=== PATIENT | female | born 1960 | race Caucasian/White ===

== ENCOUNTER → 2023-08-03 10:59 | Outpatient (CLI) | payer BC, SELFPAY | PROVIDERS: Visit Provider Student in an Organized Health Care Education/Training Program | DX: R30.0 Dysuria (principal) | CPT/HCPCS: 87086 ==

== ENCOUNTER → 2023-08-15 09:26 | Outpatient (CLI) | payer BC, SELFPAY ==
--- NOTE | 2023-08-15 09:30 | DI.RAD.S_ITS ---
PROCEDURE: XR FINGER RT MIN 2V INDICATIONS: dislocated ring finger - bent PIP 90* on Sun TECHNIQUE: AP hand, 2 views of the 4th finger(s) acquired. COMPARISON: None. FINDINGS: Bones: No fractures or dislocations. No suspicious bony lesions. Soft tissues: No suspicious soft tissue calcifications. PIP soft tissue swelling. IMPRESSION: 4th finger PIP region soft tissue swelling with no associated bony avulsion noted. Dictated by: Scott Trevino M.D. on 08/15/2023 at 10:51 Approved by: Scott Trevino M.D. on 08/15/2023 at 10:52
== END ==
PROVIDERS: PCP Student in an Organized Health Care Education/Training Program; Referring Provider Physician Assistant; Visit Provider Physician Assistant
DX: S63.254A Unspecified dislocation of right ring finger, initial encounter (principal); X58.XXXA Exposure to other specified factors, initial encounter
CPT/HCPCS: 73140

== ENCOUNTER → 2024-02-15 11:40 | Outpatient (CLI) | payer BC, SELFPAY ==
--- NOTE | 2024-02-15 11:41 | DI.RAD.S_ITS ---
PROCEDURE: XR WRIST RT MIN 3V INDICATIONS: Dog bite on write forearm/wrist TECHNIQUE: 4 views of the wrist were acquired. COMPARISON: None. FINDINGS: Bones: No acute displaced fracture or dislocation. Soft tissues: No suspicious calcifications. IMPRESSION: No acute bony abnormality. If there is high concern for occult injury, consider repeat radiography or cross-sectional imaging. Dictated by: Suhas Pierce M.D. on 02/15/2024 at 15:25 Approved by: Suhas Pierce M.D. on 02/15/2024 at 15:25
--- NOTE | 2024-02-15 11:41 | DI.RAD.S_ITS ---
PROCEDURE: XR FOREARM RT 2V INDICATIONS: Dog bite on write forearm/wrist TECHNIQUE: 2 views of the forearm were acquired. COMPARISON: None. FINDINGS: Bones: No acute displaced fracture or dislocation. Possible small exostosis arising from the distal humerus partially seen. Soft tissues: No suspicious calcifications. IMPRESSION: No acute bony abnormality. If there is high concern for occult injury, consider repeat radiography or cross-sectional imaging. Dictated by: Suhas Pierce M.D. on 02/15/2024 at 15:26 Approved by: Suhas Pierce M.D. on 02/15/2024 at 15:26
== END ==
PROVIDERS: PCP Student in an Organized Health Care Education/Training Program; Referring Provider Family Medicine; Visit Provider Family Medicine
DX: S41.151A Open bite of right upper arm, initial encounter (principal); W54.0XXA Bitten by dog, initial encounter
CPT/HCPCS: 73090; 73110

== ENCOUNTER → 2024-04-03 09:30 | Outpatient (CLI) | payer BC, SELFPAY ==
[2024-04-03 11:43] LABS: Appearance Urine UA CLEAR; Bilirubin Urine UA NEGATIVE (NEGATIVE); Color Urine UA YELLOW; Glucose Urine UA NEGATIVE (Negative); Ketones Urine UA NEGATIVE (NEGATIVE); Leukocyte Esterase Urine UA NEGATIVE (NEGATIVE); Nitrite Urine UA NEGATIVE (Negative); Occult Blood Urine UA TRACE-INTACT (Negative); Protein Urine UA NEGATIVE (Negative); Specific Gravity Urine UA <=1.005 (1.000-1.035); Urobilinogen Urine UA 0.2 E.U./dL (0.2)
[2024-04-03 11:58] LABS: Bacteria Urine Occasional (0-1); RBC Urine 0-1/HPF (0-5/HPF); Squamous Epithelial Cell Urine 0-1 /HPF (0-5/HPF); Urine Volume 10mL (spun); WBC Urine 0-1/HPF (0-5/HPF)
== END ==
PROVIDERS: PCP Student in an Organized Health Care Education/Training Program; Visit Provider Student in an Organized Health Care Education/Training Program
DX: N39.0 Urinary tract infection, site not specified (principal)
CPT/HCPCS: 81001; 87086

== ENCOUNTER 2024-04-21 16:55 | Emergency (ER) | payer BC, SELFPAY ==
[2024-04-21 16:59] VITALS: BP 136/77; PULSE 83; RESP 18; TEMP 36.8; O2SAT 97; BMI 22.3
--- NOTE | 2024-04-22 01:51 | ED.WOUNDLAC ---
HPI - Wound/Laceration General Chief Complaint: Wound/Laceration Stated Complaint: L Arm Laceration Source: patient Mode of arrival: Ambulatory History of Present Illness HPI narrative: Patient left without seeing provider Related Data Home Medications Medication Instructions Recorded Confirmed betamethasone valerate 0.1 % topical 08/03/23 04/03/24 topical ointment Previous Rx's Medication Instructions Recorded levothyroxine 100 mcg tablet 100 mcg PO DAILY #90 tabs 08/17/23 omeprazole 40 mg capsule,delayed 40 mg PO DAILY #90 caps 08/17/23 release amoxicillin 875 mg-potassium 1 tab PO BID #10 tabs 02/15/24 clavulanate 125 mg tablet sulfamethoxazole 800 1 tab PO BID #14 tabs 04/03/24 mg-trimethoprim 160 mg tablet Allergies Allergy/AdvReac Type Severity Reaction Status Date / Time oxycodone Allergy Severe Hives Verified 04/03/24 09:50 doxycycline Allergy Mild Numbness Verified 04/03/24 09:50 tramadol Allergy Mild Vomiting Verified 04/03/24 09:50 Patient History Medical History (Updated 04/21/24 @ 20:08 by Olimpia Guido RN) Decreased hearing of right ear Asthma Allergies (~1999) Bone spur (~1984) Fibromyalgia (~2014) Chicken pox (~1967) Throat irritation Vertigo Hearing loss (~2019) Ovarian cyst (~2003) Frequent UTI Skin cancer Dislocation, finger closed Hypothyroidism (~2014) GERD (gastroesophageal reflux disease) (~2014) Surgical History (Updated 09/10/23 @ 21:05 by Verenice Bazzi) Anesthesia Status post laser cataract surgery of both eyes (~2006) History of surgery (~1984) Achilles rupture, left (~2007) H/O left knee surgery (~2002) History of thyroidectomy (~2014) History of surgery (~11/2022) Family History (Updated 09/10/23 @ 21:05 by Verenice Bazzi) Brother Alcoholic Sister Overdose Social History Smoking Status: Never smoker Smoking Status: Never smoker Substance Use Type: does not use Exam Initial Vital Signs Initial Vital Signs: Vital Signs Temperature 98.2 F 04/21/24 16:59 Pulse Rate 83 04/21/24 16:59 Respiratory Rate 18 04/21/24 16:59 Blood Pressure 136/77 04/21/24 16:59 Pulse Oximetry 97 04/21/24 16:59 Oxygen Delivery Method Room Air 04/21/24 16:59 Discharge Plan Departure Patient Disposition: Left Without Being Seen Clinical Impression: Patient left before evaluation by physician Prescriptions: No Action sulfamethoxazole-trimethoprim 800-160 mg tablet 1 tab PO BID Qty: 14 0RF betamethasone valerate 0.1 % ointment topical omeprazole 40 mg capsule,delayed release(DR/EC) 40 mg PO DAILY Qty: 90 3RF levothyroxine 100 mcg tablet 100 mcg PO DAILY Qty: 90 3RF amoxicillin-pot clavulanate 875-125 mg tablet 1 tab PO BID Qty: 10 0RF
== END 2024-04-21 19:24 | disposition left against medical advice (07) ==
PROVIDERS: Emergency Provider Emergency Medicine; PCP Student in an Organized Health Care Education/Training Program
CPT/HCPCS: 99281

== ENCOUNTER 2024-05-01 14:37 | Emergency (ER) | payer BC, SELFPAY ==
[2024-05-01] VITALS (8 sets, daily range): BP systolic 128–160; BP diastolic 63–78; PULSE 68–81; RESP 14–23; TEMP 37; O2SAT 98–100; BMI 23.3
--- NOTE | 2024-05-01 14:50 | EKG_ITS ---
[address] [address] Test Date: 2024-05-01 Pat Name: Iram Reese Department: Room: Gender: Female Dispensary Technician: LEE ANN : 1960 Requested By: Order Number: [id number] Reading MD: Jalil James Measurements Intervals [place] Rate: 78 P: 83 WV: 138 QRS: 5 QRSD: 96 T: 35 QT: 404 QTc: 460 Interpretive Statements Normal sinus rhythm Electronically Signed On 05-02-2024 8:35:33 PDT by Jalil James
--- NOTE | 2024-05-01 14:50 | DI.RAD.S_ITS ---
PROCEDURE: XR CHEST 1V INDICATIONS: soa TECHNIQUE: One view of the chest was acquired. COMPARISON: None. FINDINGS: Surgical changes and devices: None. Lungs and pleura: Lungs are clear. No pleural effusions or pneumothorax. Mediastinum: Mediastinal contours appear normal. Heart size is normal. Bones and chest wall: No suspicious bony lesions. Overlying soft tissues appear unremarkable. IMPRESSION: No acute cardiopulmonary abnormality is seen. Dictated by: David Echavarria M.D. on 05/01/2024 at 15:46 Approved by: David Echavarria M.D. on 05/01/2024 at 15:46
--- NOTE | 2024-05-01 14:53 | ED_ITS ---
HPI - SOB/Dyspnea General Chief Complaint: Shortness of Breath/Dyspnea Stated Complaint: snt by [facility] asthma Time Seen by Provider: 05/01/24 14:49 History of Present Illness HPI Narrative: Patient here for shortness of breath and throat tightness that started this morning and worsening. History of asthma but has been doing well for years. Does have seasonal allergies but does not feel like anything new in her life that would cause her to have allergic reaction. No rash. Very tremulous because she received a breathing treatment at walk-in clinic and having tremors which are improving. No chest pain but throat feels it is closing. Has had thyroidectomy in the past because of throat tightening. Patient is speaking full sentences is anxious. Related Data Previous Rx's Medication Instructions Recorded levothyroxine 100 mcg tablet 100 mcg PO DAILY #90 tabs 08/17/23 albuterol sulfate 90 mcg/actuation 2 inhalation inhalation QID PRN 05/01/24 aerosol inhaler (Ventolin HFA) shortness of breath or wheezing #6.7 grams methylprednisolone 4 mg tablets in See Rx Instructions PO .COMPLEX 05/01/24 a dose pack (Medrol (Cuong)) #21 ea Allergies Allergy/AdvReac Type Severity Reaction Status Date / Time oxycodone Allergy Severe Hives Verified 04/22/24 10:20 doxycycline Allergy Mild Numbness Verified 04/22/24 10:20 tramadol Allergy Mild Vomiting Verified 04/22/24 10:20 Review of Systems Review of Systems Narrative: GENERAL: negative chills, fatigue, malaise, fever, sweats. HEENT: negative sinus pain, ear pain, sore throat, positive throat tightness RESPIRATORY: Positive dyspnea, negative cough CARDIOVASCULAR: negative chest pain, palpitations GASTROINTESTINAL: negative nausea, vomiting, abdominal pain : negative dysuria, frequency, hematuria MUSCULOSKELETAL: negative muscle or bony pain SKIN: negative rash, skin lesions NEUROLOGIC: negative weakness, numbness Patient History Medical History (Updated 05/04/24 @ 13:49 by Tin Serrano MD) Decreased hearing of right ear Asthma Allergies (~1999) Bone spur (~1984) Fibromyalgia (~2014) Chicken pox (~1967) Throat irritation Vertigo Hearing loss (~2019) Ovarian cyst (~2003) Frequent UTI Skin cancer Dislocation, finger closed Hypothyroidism (~2014) GERD (gastroesophageal reflux disease) (~2014) Surgical History (Updated 09/10/23 @ 21:05 by Verenice Bazzi) Anesthesia Status post laser cataract surgery of both eyes (~2006) History of surgery (~1984) Achilles rupture, left (~2007) H/O left knee surgery (~2002) History of thyroidectomy (~2014) History of surgery (~11/2022) Family History (Updated 09/10/23 @ 21:05 by Verenice Bazzi) Brother Alcoholic Sister Overdose Social History Smoking Status: Never smoker Smoking Status: Never smoker Substance Use Type: does not use Exam Narrative Exam Narrative: GENERAL: in no distress, not toxic not dyspneic HEAD: Normocephalic. EYES: Pupils equal round ENT: Mucous membranes moist. No pharyngeal erythema edema. No uvular shift. No uvula edema. No tongue elevation NECK: Trachea midline.. No stridor. No midline shift. No thyromegaly. CARDIOVASCULAR: Regular rate and rhythm RESPIRATORY: Clear to auscultation. Patient is speaking full sentences. However slightly diminished lung sounds bilaterally Breath sounds equal bilaterally. No wheezes, rales, or rhonchi. GASTROINTESTINAL: Abdomen soft, non-tender EXTREMITIES: No gross deformities. BACK: No flank tenderness. NEURO: AOx4. SKIN: Warm and dry PSYCH: Not anxious, is cooperative Initial Vital Signs Initial Vital Signs: Vital Signs Pulse Rate 81 05/01/24 14:44 Pulse Oximetry 99 05/01/24 14:44 Course Orders Ordered: Discontinued Medications Diphenhydramine HCl (Diphenhydramine 50 Mg/Ml Vial) 12.5 mg IV NOW ONE Stop: 05/01/24 14:50 Last Admin: 05/01/24 15:04 Dose: 12.5 mg Documented By: ANTWAN Famotidine (Famotidine 20 Mg/2 Ml Vial) 20 mg IV NOW JAMARCUS Last Admin: 05/01/24 15:05 Dose: 20 mg Documented By: ANTWAN Sodium Chloride (Normal Saline 0.9%) 500 mls @ 1,000 mls/hr IV BOLUS ONE Stop: 05/01/24 15:18 Last Infusion: 05/01/24 16:27 Dose: Infused Documented By: Admin: 05/01/24 15:05 Dose: 1,000 mls/hr Documented By: ANTWAN Methylprednisolone (Methylprednisolone 125 Mg/2 Ml Vial) 125 mg IV NOW ONE Stop: 05/01/24 14:50 Last Admin: 05/01/24 15:04 Dose: 125 mg Documented By: ANTWAN Vital Signs Vital signs: Vital Signs - 8 hr 05/01/24 14:44 05/01/24 14:51 05/01/24 15:00 Temperature 98.6 F Pulse Rate 81 79 Respiratory Rate 18 Blood Pressure 138/73 148/78 H Pulse Oximetry 99 98 Oxygen Delivery Method Room Air 05/01/24 15:00 05/01/24 15:30 05/01/24 15:31 Temperature Pulse Rate 77 71 73 Respiratory Rate 23 14 22 Blood Pressure Pulse Oximetry 98 100 100 Oxygen Delivery Method 05/01/24 15:31 Temperature Pulse Rate Respiratory Rate Blood Pressure 135/63 Pulse Oximetry Oxygen Delivery Method MDM - SOB/Dyspnea Lab Data 05/01/24 14:46 05/01/24 14:46 Labs: Lab Results 05/01/24 Range/Units 14:46 WBC 5.2 (4.5-11.0) X10^3/uL RBC 4.64 (4.0-5.2) X10^6/uL Hgb 14.7 (12.0-16.0) g/dL Hct 42.5 (36-46) % MCV 91.7 (80-100) fL MCH 31.7 (26-34) PG MCHC 34.6 (30-36) % RDW 13.2 (11.6-14.8) % Plt Count 297 (150-400) X10^3/uL Neut % (Auto) 49.7 L (50-75) % Lymph % (Auto) 41.6 H (25-40) % [place] % (Auto) 6.7 (3-14) % Eos % (Auto) 1.1 L (2-4) % Baso % (Auto) 0.9 (0-2) % Neut # (Auto) 2600 (3318-1251) /uL Lymph # (Auto) 2200 (9743-5059) /uL [place] # (Auto) 300 (0-900) /uL Eos # (Auto) 100 (0-450) /uL Baso # (Auto) 0 (0-100) /uL Sodium 137 (137-145) mmol/L Potassium 3.8 (3.4-5.1) mmol/L Chloride 105 (98-107) mmol/L Carbon Dioxide 22 (22-32) mmol/L BUN 15 (7-17) mg/dL Creatinine 0.65 (0.52-1.04) mg/dL Estimated GFR > 60 (>60) mL/min BUN/Creatinine Ratio 23.1 H (6-22) Glucose 90 (80-110) mg/dL Calcium 9.7 (8.4-10.2) mg/dL Total Bilirubin 0.8 (0.2-1.3) mg/dL AST 40 H (14-36) IU/L ALT 45 H (<35) IU/L Alkaline Phosphatase 165 H (38-126) U/L Total Creatine Kinase 146 H (30-135) U/L Troponin I < 0.012 (0.01-0.034) ng/mL Total Protein 7.9 (6.3-8.2) g/dL Albumin 4.7 (3.5-5.0) g/dL Globulin 3.2 (1.7-4.1) g/dL Albumin/Globulin Ratio 1.5 (1.0-2.8) Urine Dip Bedside Urine Glucose Negative Bedside Urine Bilirubin - Negative Bedside Urine Ketone - Negative Urine Specific [place] 1.010 Bedside Urine Occult Blood - Negative Bedside Urine pH 8.5 Bedside Urine Protein - Negative Bedside Urine Urobilinogen - Negative Bedside Urine Nitrite - Negative Bedside Urine Leukocytes - Negative Esterase Imaging Data Chest x-ray: Radiologist's Impression: [place] [address] XRay Report Signed Patient: Iram Reese MR#: [id number] : 1960 Acct:[id number] Age/Sex: 63 / F Date of Service: 05/01/24 Loc: ED Accession Number: [id number] Procedure: XR chest 1V Ordering Provider: Tin Serrano MD PROCEDURE: XR CHEST 1V INDICATIONS: soa TECHNIQUE: One view of the chest was acquired. COMPARISON: None. FINDINGS: Surgical changes and devices: None. Lungs and pleura: Lungs are clear. No pleural effusions or pneumothorax. Mediastinum: Mediastinal contours appear normal. Heart size is normal. Bones and chest wall: No suspicious bony lesions. Overlying soft tissues appear unremarkable. IMPRESSION: No acute cardiopulmonary abnormality is seen. Dictated by: David Echavarria M.D. on 05/01/2024 at 15:46 Approved by: David Echavarria M.D. on 05/01/2024 at 15:46 [facility] Narrative Medical decision making narrative: Patient here for shortness of breath and throat tightness that started this morning and worsening. History of asthma but has been doing well for years. Does have seasonal allergies but does not feel like anything new in her life that would cause her to have allergic reaction. No rash. Very tremulous because she received a breathing treatment at walk-in clinic and having tremors which are improving. No chest pain but throat feels it is closing. Has had thyroidectomy in the past because of throat tightening. Patient is speaking full sentences is anxious. After history and exam CBC CMP troponin EKG Solu-Medrol Benadryl Pepcid cardiac exercise physiologist pulse ox chest x-ray [facility] Medical records reviewed: No recent visit for this complaint Differential considered: Includes but not limited to allergic reaction asthma exacerbation STEMI non-STEMI Lab Test results independently reviewed as above. Pertinent findings: Troponin less than 0.012 Independently reviewed EKG normal sinus rhythm rate 78 normal EKG Imaging studies independently reviewed: Chest x-ray no acute finding Consultations: None indicated this time Treatments: Solu-Medrol Benadryl Pepcid normal saline Re-evaluations: Patient feeling much better. Asthma treatments provided. Likely acid reflux component as she has been off of omeprazole she stated for over 30 days. She states she does feel better after asthma treatment as well as desiring steroid pack that she usually gets. Return precautions reviewed. Nontoxic at discharge. Friends at bedside. Vital signs are reassuring. Speaking full sentences. No wheezing. She desires discharge home. Patient states she can not get into her family doctor to get refill of her inhaler. Discussion: Appropriate for discharge home. Has component of acid reflux due to noncompliance of omeprazole as well as having asthma exacerbation. Pepcid was provided here. Patient has omeprazole at home. Prescription for Medrol Dosepak and inhaler provided. She desires discharge home Diagnosis: Asthma exacerbation Discharge Plan Departure Patient Disposition: Home Clinical Impression: Asthma with exacerbation Qualifiers: Asthma severity: mild Asthma persistence: unspecified Qualified Code(s): J 45.901 - Unspecified asthma with (acute) exacerbation Instructions: DI for Asthma -- Adult Activity Restrictions/Additional Instructions: Please do not stop taking your omeprazole. This can worsen your acid reflux which can cause throat tightness. However, today symptoms were likely due to your asthma. Short course steroids pack has been provided for you. As well as prescription for inhaler. Continue steroid pack tomorrow. See your family doctor this week for re-evaluation. Return if worse if any questions or concerns Prescriptions: New methylprednisolone [Medrol (Cuong)] 4 mg tablets,dose pack See Rx Instructions .ROUTE .COMPLEX Qty: 21 0RF Rx Instructions: orally per package directions albuterol sulfate [Ventolin HFA] 90 mcg/actuation HFA aerosol inhaler 2 inhalation INHALATION QID PRN (Reason: shortness of breath or wheezing) Qty: 6.7 0RF No Action levothyroxine 100 mcg tablet 100 mcg PO DAILY Qty: 90 3RF Referrals: Venessa Wyatt MD [Primary Care Provider] - Stand Alone Forms: Patient Portal/API
[2024-05-01 14:58] LABS: Add Manual Diff / Slide Review NO; Basophils Absolute Auto 0 /uL (0-100); Basophils Percent Auto 0.9 % (0-2); Eosinophils Absolute Auto 100 /uL (0-450); Eosinophils Percent Auto 1.1 % (2-4); Hematocrit 42.5 % (36-46); Hemoglobin 14.7 g/dL (12.0-16.0); Lymphocytes Absolute Auto 2200 /uL (1100-4500); Lymphocytes Percent Auto 41.6 % (25-40); Mean Corpuscular HGB Conc 34.6 % (30-36); Mean Corpuscular Hemoglobin 31.7 PG (26-34); Mean Corpuscular Volume 91.7 fL (80-100); Monocytes Absolute Auto 300 /uL (0-900); Monocytes Percent Auto 6.7 % (3-14); Neutrophils Absolute Auto 2600 /uL (1500-7000); Neutrophils Percent Auto 49.7 % (50-75); Platelet Count 297 X10^3/uL (150-400); Red Blood Cell Count 4.64 X10^6/uL (4.0-5.2); Red Cell Distribution Width 13.2 % (11.6-14.8); White Blood Cell Count 5.2 X10^3/uL (4.5-11.0)
[2024-05-01] MEDS: diphenhydrAMINE 50 MG/ML VIAL 12.5 MG IV (15:04)
[2024-05-01] MEDS: methylPREDNISolone 125 MG/2 ML VIAL IV (15:04)
[2024-05-01] MEDS: FAMOTIDINE 20 MG/2 ML VIAL IV (15:05)
[2024-05-01] MEDS: SODIUM CHLORIDE 0.9% 500 ML 1000 ML IV (15:05)
[2024-05-01 15:13] LABS: Alanine Aminotransferase 45 IU/L (<35); Albumin 4.7 g/dL (3.5-5.0); Albumin Globulin Ratio 1.5 (1.0-2.8); Alkaline Phosphatase 165 U/L (38-126); Aspartate Aminotransferase 40 IU/L (14-36); BUN Creatinine Ratio 23.1 (6-22); Bilirubin Total 0.8 mg/dL (0.2-1.3); Blood Urea Nitrogen 15 mg/dL (7-17); Calcium 9.7 mg/dL (8.4-10.2); Carbon Dioxide 22 mmol/L (22-32); Chloride 105 mmol/L (98-107); Creatine Kinase 146 U/L (30-135); Estimated Glomerular Filt Rate > 60 mL/min (>60); Globulin 3.2 g/dL (1.7-4.1); Glucose 90 mg/dL (80-110); HEMOLYSIS < 15 (0-50); Potassium 3.8 mmol/L (3.4-5.1); Sodium 137 mmol/L (137-145); Total Protein 7.9 g/dL (6.3-8.2)
[2024-05-01 15:24] LABS: Troponin I < 0.012 ng/mL (0.01-0.034)
== END 2024-05-01 16:59 | disposition home or self-care (01) ==
PROVIDERS: Emergency Provider Emergency Medicine; PCP Student in an Organized Health Care Education/Training Program
DX: J45.901 Unspecified asthma with (acute) exacerbation (principal)
CPT/HCPCS: 36415; 71045; 80053; 81003; 82550; 84484; 85025; 93005; 96361; 96374; 96375; 99284; J1200; J2919

== ENCOUNTER → 2024-05-07 12:06 | Outpatient (CLI) | payer BC, SELFPAY ==
--- NOTE | 2024-05-07 12:08 | DI.RAD.S_ITS ---
PROCEDURE: XR SOFT TISSUE NECK INDICATIONS: Globus sensation. Evaluate esophagus. TECHNIQUE: 2 views of the neck were acquired. COMPARISON: None. FINDINGS: Airway: The airway appears patent. Soft tissues: Prevertebral soft tissues are normal in thickness. The epiglottis and aryepiglottic folds appear normal. No soft tissue gas. Multiple vascular clips project over the lower neck anterior soft tissues. Bones: No suspicious bony lesions. Visualized cervical spine is normally aligned. IMPRESSION: No acute abnormality. Dictated by: Yodit Deshpande MD, PhD on 05/07/2024 at 12:57 Approved by: Yodit Deshpande MD, PhD on 05/07/2024 at 12:58
== END ==
PROVIDERS: PCP Student in an Organized Health Care Education/Training Program; Referring Provider Student in an Organized Health Care Education/Training Program; Visit Provider Student in an Organized Health Care Education/Training Program
DX: J39.2 Other diseases of pharynx (principal); K21.9 Gastro-esophageal reflux disease without esophagitis
CPT/HCPCS: 70360

== ENCOUNTER → 2024-06-03 13:48 | Outpatient (CLI) | payer BC, SELFPAY ==
--- NOTE | 2024-06-03 13:49 | DI.RAD.S_ITS ---
PROCEDURE: XR WRIST LT MIN 3V INDICATIONS: r/o fx s/p FOOSH TECHNIQUE: 4 views of the wrist were acquired. COMPARISON: [facility], CR, XR WRIST RT MIN 3V, 02/15/2024, 11:40. FINDINGS: Bones: Acute, minimally displaced, oriented fracture of the distal radius with cortical irregularity and intra-articular extension into the radiocarpal joint. Marked 1st CMC and STT joint space narrowing and juxta-articular osteophytosis. No suspicious bony lesions. Soft tissues: No suspicious soft tissue calcifications. IMPRESSION: 1. Acute, minimally displaced, intra-articular fracture of the distal radius. 2. 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 Dictated by: Suzy Rhodes M.D. on 06/03/2024 at 14:42 Approved by: Suzy Rhodes M.D. on 06/03/2024 at 14:44
--- NOTE | 2024-06-03 13:49 | DI.RAD.S_ITS ---
PROCEDURE: XR FOREARM LT 2V INDICATIONS: Ground level fall TECHNIQUE: 2 views of the forearm were acquired. COMPARISON: [facility], CR, XR WRIST LT MIN 3V, 06/03/2024, 14:02. [facility], CR, XR FOREARM RT 2V, 02/15/2024, 11:40. FINDINGS: Bones: No fractures or dislocations of the proximal to mid radius and ulna. No suspicious bony lesions. Soft tissues: No suspicious soft tissue calcifications or masses. IMPRESSION: No acute fracture of the proximal to mid radius and ulna. Please see same day wrist radiograph for detailed description of distal radius fracture. Dictated by: Suzy Rhodes M.D. on 06/03/2024 at 14:44 Approved by: Suzy Rhodes M.D. on 06/03/2024 at 14:45
== END ==
PROVIDERS: PCP Student in an Organized Health Care Education/Training Program; Referring Provider Nurse Practitioner Family; Visit Provider Nurse Practitioner Family
DX: S52.572A Other intraarticular fracture of lower end of left radius, initial encounter for closed fracture (principal); M19.042 Primary osteoarthritis, left hand; M25.532 Pain in left wrist
CPT/HCPCS: 73090; 73110

== ENCOUNTER → 2024-06-26 13:02 | Outpatient (CLI) | payer BC, SELFPAY ==
--- NOTE | 2024-06-26 13:03 | DI.RAD.S_ITS ---
PROCEDURE: FL BARIUM SWALLOW INDICATIONS: reflux, Foreign body sensation, throat COMPARISON: None. FINDINGS: Function: Few episodes of tertiary contraction is noted in distal esophageal wall muscles during the study. Mild to moderate gastroesophageal reflux is noted with contrast reflux to mid esophageal lumen. There is normal transit of a calibrated barium tablet through the esophagus into the stomach. Morphology: Air-contrast images demonstrate normal mucosal morphology. Single contrast views show no esophageal strictures, extrinsic mass effects, or diverticula. Limited images of the stomach demonstrate normal appearance. IMPRESSION: 1. Mild tertiary contractions noted in distal esophageal wall muscles which may indicate early esophageal wall muscle contractility disorder suggest clinical correlation. 2. Hare-ho-vgymokhu gastroesophageal reflux. 3. No hiatal hernia. No gross large ulceration or intraluminal filling defect. Dictated by: Bhavin Tejeda M.D. on 06/26/2024 at 16:00 Approved by: Bhavin Tejeda M.D. on 06/26/2024 at 16:01
== END ==
PROVIDERS: PCP Student in an Organized Health Care Education/Training Program; Referring Provider Surgery; Visit Provider Surgery
DX: K21.9 Gastro-esophageal reflux disease without esophagitis (principal); R09.A2 Foreign body sensation, throat; R06.89 Other abnormalities of breathing
CPT/HCPCS: 74220

== ENCOUNTER → 2024-07-03 08:28 | Outpatient (CLI) | payer BC, SELFPAY ==
--- NOTE | 2024-07-03 08:45 | DI.US.S_ITS ---
ULTRASOUND OF RIGHT AXILLA: 07/03/2024 CLINICAL: Right axillary pain/lump. Hx of ruptured implants, surg removal and replacement of silicone implants 2022. Pt refuses mammograms (believes mammo ruptured implants). No prior exams were available for comparison. Real-time ultrasound of the right axilla was performed. Solorzano scale images of the real-time examination were reviewed. No significant abnormalities were seen sonographically in the right axilla. IMPRESSION: NEGATIVE There is no sonographic evidence of malignancy. No mass or enlarged lymph nodes. Due for screening mammogram. If mammogram is not desired, alternative screening with breast MRI could be considered. This exam was interpreted at Station ID: [id number]. Electronically Signed By: Roland Pacheco M.D. [facility]/:07/11/2024 15:17:55 letter sent: Normal Exam ACR BI-RADS Category 1: Negative
== END ==
PROVIDERS: PCP Student in an Organized Health Care Education/Training Program; Referring Provider Student in an Organized Health Care Education/Training Program; Visit Provider Student in an Organized Health Care Education/Training Program
DX: N63.10 Unspecified lump in the right breast, unspecified quadrant (principal); N64.4 Mastodynia; M79.89 Other specified soft tissue disorders; Z98.82 Breast implant status
CPT/HCPCS: 76882

== ENCOUNTER → 2024-07-23 15:02 | Outpatient (CLI) | payer BC, SELFPAY ==
--- NOTE | 2024-07-23 15:03 | DI.MRI.S_ITS ---
BREAST MRI OF BOTH BREASTS: 07/23/2024 CLINICAL: Implant rupture. PROCEDURE: MR BREAST BI WO CON INDICATIONS: breast implants, breast pain. MRI performed to evaluation implant integrity. TECHNIQUE: The patient was placed prone in a dedicated breast imaging coil. Axial bilateral STIR, axial and sagittal STIR with water saturation (silicone selective), sagittal T2 fast spin echo with fat saturation, and coronal T2 fast spin echo without fat saturation sequences were acquired. COMPARISON: None. FINDINGS: Image quality: Diagnostic There is scattered amount of fibroglandular tissue. Right breast: There is an intact prepectoral silicone gel implant. No evidence of intracapsular or extracapsular rupture. Left breast: There is an intact prepectoral silicone gel implant. No evidence of intracapsular or extracapsular rupture. IMPRESSION: BENIGN Non-contrast breast MRI demonstrates intact bilateral silicone gel implants without evidence of intracapsular or extracapsular rupture. Recommend clinical follow-up. Recommend routine annual mammogram screening. Of note, history of breast pain is reported and evaluation with diagnostic mammogram and targeted ultrasound would be indicated if there are focal/ongoing symptoms. This exam was interpreted at Station ID: [id number]. Electronically Signed By: Rachell Mitchell M.D., Ph.D. eb/:07/25/2024 00:06:54 letter sent: Clinical Evaluation ACR BI-RADS Category 2: Benign
== END ==
LOC: MRI 15:03
PROVIDERS: Family Provider Student in an Organized Health Care Education/Training Program; PCP Student in an Organized Health Care Education/Training Program; Referring Provider Student in an Organized Health Care Education/Training Program; Visit Provider Student in an Organized Health Care Education/Training Program
DX: N64.4 Mastodynia (principal); Z98.82 Breast implant status
CPT/HCPCS: 77047

== ENCOUNTER → 2024-11-25 12:15 | Outpatient (CLI) | payer BC, SELFPAY ==
--- NOTE | 2024-11-25 12:17 | DI.RAD.S_ITS ---
PROCEDURE: XR THORACIC SPINE 2V INDICATIONS: Pain in back TECHNIQUE: 3 views of the thoracic spine were acquired. COMPARISON: None. FINDINGS AND IMPRESSION: There are mild degenerative changes with multifocal mild endplate deformities, disc space height loss, and early osteophytes. No acute fracture or traumatic subluxation. Trace S-shaped spinal curvature. No suspicious soft tissue calcifications. If there is high concern for further derangement, consider MRI evaluation. Dictated by: Suhas Pierce M.D. on 11/25/2024 at 15:42 Approved by: Suhas Pierce M.D. on 11/25/2024 at 15:44
== END ==
PROVIDERS: Family Provider Student in an Organized Health Care Education/Training Program; PCP Student in an Organized Health Care Education/Training Program; Referring Provider Student in an Organized Health Care Education/Training Program; Visit Provider Student in an Organized Health Care Education/Training Program
DX: M54.9 Dorsalgia, unspecified (principal); M47.814 Spondylosis without myelopathy or radiculopathy, thoracic region
CPT/HCPCS: 72070

== ENCOUNTER → 2024-12-06 12:03 | Outpatient (CLI) | payer BC, SELFPAY ==
--- NOTE | 2024-12-06 12:04 | DI.MRI.S_ITS ---
PROCEDURE: MR THORACIC SPINE WO/W CON INDICATIONS: Arthritic Changes Present TECHNIQUE: Noncontrast sagittal T1 spin echo and T2 fast spin echo, sagittal STIR, axial T1 and T2 fast spin echo through the thoracic spine. After the administration of contrast, axial and sagittal T1 spin echo with fat saturation through the thoracic spine. COMPARISON: [facility], CR, XR THORACIC SPINE 2V, 11/25/2024, 12:16. FINDINGS: Image quality: Excellent Localizer images: Unremarkable Mild levoscoliosis at the cervical thoracic junction, and mild dextroscoliosis at the mid thoracic spine. Mild anterolisthesis of C7 on T1, T1 on T2, and T2 on T3. Vertebral body height of the thoracic spine is well maintained. Vertebral hemangioma in T10 vertebral body. No suspicious marrow replacing lesion. Multilevel disc desiccation. No significant disc bulge. Thoracic cord signal: Unremarkable Central canal stenosis: None. Right neural foraminal stenosis: None. Left neural foraminal stenosis: None. Other soft tissue findings: 3.5 cm descending thoracic aortic aneurysm. IMPRESSION: 1. Mild scoliosis of the thoracic spine, without central canal or neural foraminal stenosis. 2. 3.5 cm descending thoracic aortic aneurysm. Dictated by: Gwen Perez M.D. on 12/06/2024 at 14:47 Approved by: Gwen Perez M.D. on 12/06/2024 at 14:58
== END ==
PROVIDERS: Family Provider Student in an Organized Health Care Education/Training Program; PCP Student in an Organized Health Care Education/Training Program; Referring Provider Student in an Organized Health Care Education/Training Program; Visit Provider Student in an Organized Health Care Education/Training Program
DX: I71.23 Aneurysm of the descending thoracic aorta, without rupture (principal); M43.14 Spondylolisthesis, thoracic region; M54.6 Pain in thoracic spine; M41.9 Scoliosis, unspecified; D18.09 Hemangioma of other sites
CPT/HCPCS: 72157; A9579

== ENCOUNTER → 2024-12-16 12:25 | Outpatient (CLI) | payer BC, SELFPAY ==
--- NOTE | 2024-12-16 12:26 | DI.ECHO.S_ITS ---
[facility]---------+ [facility] : : [address] : : [place] : : [id number] : : Phone: [phone] Echocardiogram Report + + :Name: GURPREET THOMSON Study Date: 12/16/2024 Height: 64 in : :Hospital ReadingLocation: Weight: 134 lb : : Gender: Female BSA: 1.6 m2 : :: 1960 Age: 64 yrs BP: 136/83 mmHg: :Reason For Study: THORACIC ANEURYSM : :Ordering Physician: SPENCER, : :LAVONNE Performed By: Eileen Gore : :Referring: LAVONNE JORDAN : + + Interpretation Summary Normal left ventricle size with ejection fraction 60-65%. The left atrium is mildly dilated. There is mild aortic regurgitation. The ascending aorta is mildly enlarged. Procedure: A two-dimensional transthoracic echocardiogram with color flow and Doppler was performed. The study quality was technically adequate. There is no prior echocardiogram noted for this patient. The patient was in sinus rhythm with heart rates between 63-82 bpm during the exam. Left Ventricle: The left ventricle is normal in size and wall thickness. The ejection fraction is estimated to be 60-65%. There are no focal wall motion abnormalities. Diastolic parameters suggest probable normal left ventricular diastolic function and normal filling pressures. Right Ventricle: The right ventricle is normal in size and function. Atria: The left atrium is mildly dilated. Right atrial size is normal. There is no Doppler evidence for an interatrial shunt. Mitral Valve: The mitral valve leaflets appear to open well. There is trace mitral regurgitation. Aortic Valve: The aortic valve is trileaflet. The aortic valve opens well. There is no aortic valve stenosis. There is mild aortic regurgitation. Tricuspid Valve: The tricuspid valve leaflets are thin and pliable. There is trace tricuspid regurgitation. The right ventricular systolic pressure is estimated to be at least 32 mmHg based on an estimated right atrial pressure of 3 mm Hg. Pulmonic Valve: The pulmonic valve leaflets are thin and pliable; valve motion is normal. There is trace pulmonic regurgitation. Great Vessels: The aortic root is normal size. The ascending aorta is mildly enlarged. The IVC is of normal diameter and collapses greater than 50% with a sniff. This suggests a low right atrial pressure of 3 mm Hg. Pericardium/ Pleura There is no pericardial effusion. There is no pleural effusion. MMode/2D Measurements & Calculations LVIDd: 4.4 cm LVOT diam: 2.0 cm LVIDs: 3.2 cm Ao root diam: 3.0 cm FS: 29.1 % asc Aorta Diam: 3.8 cm EPSS: 0.23 cm Ao Arch Diam (Prox Trans): 3.2 cm IVSd: 0.81 cm LVPWd: 0.91 cm LV robbins. diameter/BSA (cm/m^2): 2.7 LV sys. diameter/BSA (cm/m^2): 1.9 LA A2 area: 22.2 cm2 RA long axis: 5.0 cm LA A4 area: 15.8 cm2 RA area: 14.8 cm2 LA length (vol): 5.1 cm RA vol: 37.0 ml LA vol: 58.1 ml RA : 22.4 ml/m2 LA vol index: 35.2 ml/m2 IVC diam: 1.9 cm RVD1 (basal): 3.9 cm RVD2 (mid): 3.0 cm TAPSE: 2.6 cm Doppler Measurements & Calculations Ao V2 max: 141.0 cm/sec LVOT Max Cory: 104.0 cm/sec Ao V2 mean: 91.9 cm/sec LV V1 max P.3 mmHg Ao max P.0 mmHg LV V1 VTI: 21.3 cm Ao mean P.9 mmHg PATITO(I,D): 2.3 cm2 Ao V2 VTI: 28.3 cm PATITO(V,D): 2.3 cm2 sev ratio: 0.75 PATITO indexed to BSA (cm^2/m^2): 1.4 AI P1/2t: 638.7 msec AI dec slope: 205.9 cm/sec2 MV E max cory: 62.7 cm/sec TR max cory: 267.5 cm/sec MV A max cory: 56.1 cm/sec TR max P.6 mmHg MV E/A: 1.1 PA V2 max: 92.6 cm/sec Med Peak E' Cory: 7.9 cm/sec PA V2 mean: 64.4 cm/sec E/E' med: 7.9 PA mean P.8 mmHg Lat Peak E' Cory: 8.9 cm/sec PA pr(Accel): 25.1 mmHg E/E' lat: 7.0 E/e' average: 7.5 MV dec time: 0.17 sec SV(LVOT): 66.1 ml Electronically signed by: Patrick Vora on Reading Physician:12/16/2024 04:13 PM
== END ==
PROVIDERS: Family Provider Student in an Organized Health Care Education/Training Program; PCP Student in an Organized Health Care Education/Training Program; Referring Provider Student in an Organized Health Care Education/Training Program; Visit Provider Student in an Organized Health Care Education/Training Program
DX: I35.1 Nonrheumatic aortic (valve) insufficiency (principal); I71.20 Thoracic aortic aneurysm, without rupture, unspecified
CPT/HCPCS: 93306

== ENCOUNTER → 2024-12-30 12:39 | Outpatient (CLI) | payer BC, SELFPAY ==
--- NOTE | 2024-12-30 12:41 | DI.RAD.S_ITS ---
PROCEDURE: XR HIP W PEL IF DONE LT 2V INDICATIONS: L hip pain TECHNIQUE: AP pelvis with lateral view(s) of the left hip(s). COMPARISON: None. FINDINGS: Bones: No fractures or dislocations. Mild joint space narrowing, marginal osteophytosis and acetabular subchondral sclerosis and cystic degenerative change. Pelvic ring appears intact. No suspicious bony lesions. Soft tissues: The visualized bowel gas pattern is normal. No suspicious soft tissue calcifications. IMPRESSION: Degenerative change of the left hip without evidence acute bony abnormality. Dictated by: Abelino Ivory M.D. on 12/31/2024 at 3:18 Approved by: Abelino Ivory M.D. on 12/31/2024 at 3:19
--- NOTE | 2024-12-30 12:41 | DI.US.S_ITS ---
PROCEDURE: US PELVIC COMPLETE INDICATIONS: LLQ pain TECHNIQUE: Real-time scanning was performed of the pelvic organs, with image documentation. Additional endovaginal scanning was necessary due to incomplete visualization of the adnexal and endometrial structures by transabdominal scanning. COMPARISON: None. FINDINGS: Uterus: Uterus is anteverted and small in size at 4.7 x 1.7 x 3.4 cm. The myometrium is homogeneous. The endometrium measures 9 mm combined thickness. Cystic structure within the endometrium measuring 10 x 7 x 4 millimeters. Ovaries: The right ovary measures 2.4 x 1.9 x 1.2 cm, with a calculated ovarian volume of 2.7 cc. Simple cyst within the right ovary measuring 1.5 x 1.1 x 1.5 centimeters. The left ovary is not seen. Other: No pathologic free abdominal or pelvic fluid. IMPRESSION: Endometrium is thickened measuring 9 millimeters with a cystic structure in the endometrium measuring 10 x 7 x 4 millimeters. Recommend endometrial sampling or short-term follow-up ultrasound. There is a 1.5 centimeter simple cyst within the right ovary. Given age, follow-up ultrasound in 6-12 weeks is recommended to assess stability or resolution. The left ovary is not seen. We strive to produce accurate, complete, and clear reports of imaging services. To assist us in improving patient care, this report was composed using standard report templates and voice recognition software. Therefore, it may contain abnormal punctuation, insertions and/or omissions. Occasional wrong-word or sound-alike substitutions may occur. Though we review the report and make efforts to correct it, we do recommend that the report be read carefully in proper context to recognize any text inaccuracies. Dictated by: David Echavarria M.D. on 12/31/2024 at 8:50 Approved by: David Echavarria M.D. on 12/31/2024 at 8:53
== END ==
PROVIDERS: Family Provider Student in an Organized Health Care Education/Training Program; PCP Student in an Organized Health Care Education/Training Program; Referring Provider Student in an Organized Health Care Education/Training Program; Visit Provider Student in an Organized Health Care Education/Training Program
DX: N83.291 Other ovarian cyst, right side (principal); M25.552 Pain in left hip; R93.89 Abnormal findings on diagnostic imaging of other specified body structures; R10.32 Left lower quadrant pain
CPT/HCPCS: 73502; 76830; 76856

== ENCOUNTER 2025-01-10 06:21 | Day surgery (SDC) | payer BC, SELFPAY ==
--- NOTE | 2025-01-10 | PATH_ITS ---
[facility] Accession Number: [id number] No. of containers..02 Tissue . 01 Material submitted: . PART A: colon - TRANSVERSE POLYP PART B: sigmoid colon - SIGMOID POLYP . 01 Diagnosis: Part A: TRANSVERSE POLYP : Hyperplastic polyp. . Part B: SIGMOID POLYP: Tubular adenoma. [facility] 01/14/2025 1151 Local . 01 Electronically signed: . Kenneth Chavez MD, Pathologist NPI- [id number] . 01 Gross description: . A. Received in formalin with two identifiers and transverse colon polyp, is a single suarez soft tissue fragment 0.5 cm in greatest dimension. Submitted in cassette A1. . B. Received in formalin with two identifiers and sigmoid colon polyp, is a single suarez soft tissue fragment 0.6 cm in greatest dimension. Submitted in cassette B1. ([id number]) /PAGE 01/14/2025 1151 Local . 01 Pathologist provided ICD-10: D12.5, K63.5 . 01 CPT . 474305, 241404 Specimen Comment: A courtesy copy of this report has been sent to [facility]ology Performed at: [address] [id number] MD Kenneth Chavez MD Phone: [phone]
[2025-01-10 07:09] VITALS: BP 119/75; PULSE 87; RESP 17; TEMP 37.2; O2SAT 96
[2025-01-10] MEDS: LACTATED RINGERS 1,000 ML 42 ML IV (07:12)
--- NOTE | 2025-01-10 07:42 | PM.PREOP ---
Pre-operative Note Interval Note History & Physical reviewed/Exam performed by Physician: Yes Changes to H&P: No
--- NOTE | 2025-01-10 08:05 | PM.OP.COLON ---
Operative Date/Time/Diagnoses Date of procedure: 01/10/25 Time of procedure: 08:05 Pre-op diagnosis: Blood per rectum Procedure & Clinicians Study performed: Colonoscopy with cold snare polypectomy x2 Same procedure as scheduled: Yes Indications: Blood per rectum, colon screening Surgeon: Omkar Krishna Procedure Notes SCOAP/Timeout: Performed Procedure in detail: Time-out was performed. Mac was induced. Patient was placed in left lateral decubitus position. The perineum was inspected without any gross abnormality. Lubricated pediatric colonoscope was inserted and advanced to the cecum. The terminal ileum was intubated. The colonoscope was withdrawn slowly inspecting the circumference of the colon. Small, benign-appearing polyps were noted in the transverse colon sigmoid colon. These were completely removed with cold snare polypectomy and retrieved. Very small polyps may have been missed, prep quality was adequate. Sigmoid diverticulosis was noted. Retroflexed view of the rectum showed small, non prolapsed nonbleeding internal hemorrhoids. The scope was withdrawn the patient was taken to PACU in good condition. Scope withdrawal time: 12 Findings: divertiulosis, internal hemorrhoids and polyp(s) Specimen(s): other (1. Transverse colon polyp 2. Sigmoid colon polyp) Complications: none Impression: Polyps, diverticulosis, internal hemorrhoids Post-procedure Recommendations: Colonoscopy in 5 years Plan for aftercare: home Follow up: as needed Disposition: PACU
[2025-01-10 08:06] VITALS: BP 92/49; PULSE 79; RESP 16; TEMP 36.7; O2SAT 95
[2025-01-10 08:11] VITALS: BP 106/60; PULSE 77; RESP 16; O2SAT 97
[2025-01-10 08:15] VITALS: BP 111/68; PULSE 76; RESP 12; TEMP 37; O2SAT 96
[2025-01-10 08:18] VITALS: BP 113/73; PULSE 77; RESP 14; O2SAT 96
== END 2025-01-10 08:27 | disposition home or self-care (01) ==
PROVIDERS: Family Provider Student in an Organized Health Care Education/Training Program; PCP Student in an Organized Health Care Education/Training Program; Referring Provider Surgery; Visit Provider Surgery
PROC: 0DJD8ZZ Inspection of Lower Intestinal Tract, Via Natural or Artificial Opening Endoscopic (ICD-10-PCS; CPT 45378; principal; 2025-01-10 07:45)
DX: K62.5 Hemorrhage of anus and rectum (principal); K57.30 Diverticulosis of large intestine without perforation or abscess without bleeding; K64.8 Other hemorrhoids
CPT/HCPCS: 45385; J2704

== ENCOUNTER → 2025-02-07 13:53 | Outpatient (CLI) | payer BC, SELFPAY ==
[2025-02-07 16:09] LABS: Cancer Antigen 125 < 5.5 U/mL (0-35)
== END ==
PROVIDERS: Family Provider Student in an Organized Health Care Education/Training Program; PCP Student in an Organized Health Care Education/Training Program; Referring Provider Obstetrics & Gynecology; Visit Provider Obstetrics & Gynecology
DX: D49.59 Neoplasm of unspecified behavior of other genitourinary organ (principal)
CPT/HCPCS: 36415; 86304; 86305

== ENCOUNTER 2025-02-17 14:02 | Day surgery (SDC) | payer BC, SELFPAY ==
[2025-02-07 09:30] VITALS: BMI 23.0
--- NOTE | 2025-02-17 | PATH_ITS ---
[facility] Accession Number: [id number] No. of containers..01 Tissue . 01 Material submitted: . endometrium - ENDOMETRIAL CURETTINGS . 01 Diagnosis: ENDOMETRIUM, CURETTAGE: Small fragments of benign endometrium with features suggestive of an endometrial polyp. Background unremarkable squamous and endocervical epithelium. Negative for endometrioid intraepithelial neoplasia and invasive malignancy in this small sample. [facility] 02/20/2025 1216 Local . 01 Electronically signed: . Janay Pak DO, Pathologist NPI- [id number] . 01 Gross description: . Received in formalin with two identifiers and endometrial curetting, and consists of a 0.7 x 0.6 x 0.2 cm aggregate of blood-tinged mucus and suarez soft tissue, which is filtered and entirely submitted in cassette A1. ([id number]) /MRV 02/18/2025 2200 Local . 01 Pathologist provided ICD-10: R93.89 . 01 CPT . 662353 Specimen Comment: A courtesy copy of this report has been sent to [facility] Performed at: [address] [address], [place], [place] [id number] MD Kenneth Chavez MD Phone: [phone]
[2025-02-17 14:20] VITALS: BMI 23.0
--- NOTE | 2025-02-17 14:30 | PM.PREOP ---
Pre-operative Note Interval Note History & Physical reviewed/Exam performed by Physician: Yes Changes to H&P: No ASA Class (for procedural sedation): II
[2025-02-17] MEDS: ACETAMINOPHEN IV 1,000 MG/100 ML VIAL 400 MG IV (14:36)
[2025-02-17] MEDS: LACTATED RINGERS 1,000 ML 42 ML IV (14:36)
[2025-02-17 14:37] VITALS: BP 126/80; PULSE 77; RESP 19; TEMP 36.8; O2SAT 97
--- NOTE | 2025-02-17 14:53 | SUR.OPER ---
Lithotomy on padded OR bed, head on pillow, arms secured on padded arm boards at <90 degrees abduction. Legs secured in padded yellow fins stirrups.
--- NOTE | 2025-02-17 15:09 | P.OP_ITS ---
Operative Date/Time/Diagnoses Date of procedure: 02/17/25 Time of procedure: 15:09 Pre-op diagnosis: abnormal pelvic US Post-op diagnosis: same Procedure & Clinicians Procedure: hysteroscopy, dilation and curettage Same procedure as scheduled: Yes Indications: abnormal pelvic ultrasound Surgeon: Olimpia Ojeda Click Yes if Unassisted: Yes Anesthesia Type: General Operative Notes Findings: postmenopausal female genitalia, stenotic vagina and cervix unable to pass hysteroscope beyond internal cervical os, D&C completed as scheduled Closure Type: not applicable Specimen(s): other Prosthetic devices, grafts, tissues, transplants, or devices: endometrial currettings Estimated Blood Loss (mL): 5 Procedure in detail: Pt was taken to the operating room, transferred to OR table and anesthesia was induced with placement of LMA.? Pt had her legs placed in Jalil stirrups and an exam under anesthesia was performed. The patient was prepped and draped in a sterile fashion.? A time out was performed. ?The bladder was emptied via straight catheter in sterile fashion.? A sterile speculum was inserted into the vagina.? The cervix was visualized and grasped anteriorly using a single tooth tenaculum.? The cervical os was noted to be severely stenotic despite pre- procedure treatment with misoprostol. Using the lacrimal duct finder entry via the external os was achieved, however unable to dilate past 13f. The 5mm 0 degree hysteroscope was then inserted into the endocervix but was unable to be advanced beyond the internal os secondary to severe stenosis. The hysteroscope was removed and the uterus sounded to 7cm; all four corners of endometrium cavity palpated with curette ensuring no perforation, after which the endometrial cavity was sharply curetted until a gritty texture was noted throughout.? The tenaculum was removed and hemostasis was noted at insertion sites.? The speculum was removed and hemostasis was again noted to be excellent.? The patient then had her legs taken out of stirrups.? The patient tolerated the procedure well and without difficulty.? The patient was awakened from anesthesia and taken to PACU in stable condition. Complications: none Post-operative Condition: stable Disposition: PACU Plan for aftercare: anticipate dc to home pending routine postop recovery
[2025-02-17 15:14] VITALS: BP 121/76; PULSE 83; RESP 20; TEMP 36.3; O2SAT 94
[2025-02-17 15:19] VITALS: BP 111/71; PULSE 79; RESP 16; O2SAT 97
[2025-02-17 15:24] VITALS: BP 127/79; PULSE 74; RESP 22; O2SAT 97
[2025-02-17 15:29] VITALS: BP 135/77; PULSE 69; RESP 14; TEMP 36.5; O2SAT 97
[2025-02-17 15:41] VITALS: BP 141/77; PULSE 67; RESP 16; TEMP 36.2; O2SAT 99
== END 2025-02-17 16:00 | disposition home or self-care (01) ==
PROVIDERS: Family Provider Student in an Organized Health Care Education/Training Program; PCP Student in an Organized Health Care Education/Training Program; Referring Provider Obstetrics & Gynecology; Visit Provider Obstetrics & Gynecology
PROC: 0UDB8ZZ Extraction of Endometrium, Via Natural or Artificial Opening Endoscopic (ICD-10-PCS; CPT 58558; principal; 2025-02-17 15:45)
DX: R93.89 Abnormal findings on diagnostic imaging of other specified body structures (principal); N89.5 Stricture and atresia of vagina; N88.2 Stricture and stenosis of cervix uteri
CPT/HCPCS: 58558; J0131; J1100; J1885; J2250; J2405; J2704

== ENCOUNTER → 2025-02-21 09:23 | Outpatient (CLI) | payer BC, SELFPAY ==
[2025-02-21 10:04] LABS: Appearance Urine UA CLEAR; Bilirubin Urine UA NEGATIVE (NEGATIVE); Color Urine UA YELLOW; Glucose Urine UA NEGATIVE (Negative); Ketones Urine UA NEGATIVE (NEGATIVE); Leukocyte Esterase Urine UA NEGATIVE (NEGATIVE); Nitrite Urine UA NEGATIVE (Negative); Occult Blood Urine UA TRACE-INTACT (Negative); Protein Urine UA NEGATIVE (Negative); Specific Gravity Urine UA 1.015 (1.000-1.035); Urobilinogen Urine UA 0.2 E.U./dL (0.2)
[2025-02-21 10:07] LABS: pH Urine UA 5.5 (4.5-8.0)
[2025-02-21 10:10] LABS: Bacteria Urine Occasional (0-1); Culture Indicated Urine Cult Not Indicated; RBC Urine 0-1/HPF (0-5/HPF); Squamous Epithelial Cell Urine 0-1 /HPF (0-5/HPF); Urine Volume 10mL (spun); WBC Urine 0-1/HPF (0-5/HPF)
== END ==
PROVIDERS: Family Provider Student in an Organized Health Care Education/Training Program; PCP Student in an Organized Health Care Education/Training Program; Referring Provider Obstetrics & Gynecology; Visit Provider Obstetrics & Gynecology
DX: R39.15 Urgency of urination (principal)
CPT/HCPCS: 81001

== ENCOUNTER → 2025-04-03 06:41 | Outpatient (CLI) | payer BC, SELFPAY ==
[2025-04-03 08:37] LABS: Alanine Aminotransferase 33 IU/L (<35); Albumin 4.3 g/dL (3.5-5.0); Albumin Globulin Ratio 1.5 (1.0-2.8); Alkaline Phosphatase 124 U/L (38-126); Blood Urea Nitrogen 15 mg/dL (7-17); Calcium 9.6 mg/dL (8.4-10.2); Carbon Dioxide 28 mmol/L (22-32); Chloride 102 mmol/L (98-107); Cholesterol 230 mg/dL (140-199); Estimated Glomerular Filt Rate > 60 mL/min (>60); Globulin 2.9 g/dL (1.7-4.1); Glucose 86 mg/dL (70-99); HDL Cholesterol 83 mg/dL (40-60); HEMOLYSIS < 15 (0-50); Potassium 4.4 mmol/L (3.4-5.1); Sodium 137 mmol/L (137-145); Total Protein 7.2 g/dL (6.3-8.2); Triglycerides 96 mg/dL (35-150)
== END ==
PROVIDERS: PCP Student in an Organized Health Care Education/Training Program; Referring Provider Student in an Organized Health Care Education/Training Program; Visit Provider Student in an Organized Health Care Education/Training Program
DX: E78.5 Hyperlipidemia, unspecified (principal); R74.8 Abnormal levels of other serum enzymes
CPT/HCPCS: 36415; 80053; 80061

== ENCOUNTER → 2025-05-12 14:22 | Outpatient (CLI) | payer BC, SELFPAY ==
--- NOTE | 2025-05-12 14:25 | DI.RAD.S_ITS ---
PROCEDURE: XR CALCANEOUS LT MIN 2V INDICATIONS: heel pain, swelling TECHNIQUE: Two views of the calcaneus were acquired. COMPARISON: None. FINDINGS: Bones: There is sharp flattening of the posterior calcaneus which could indicate prior surgical resection. Dystrophic calcifications are seen along the deep insertion of the Achilles tendon on the calcaneus. Joints: The joint spaces are normal in width and alignment without arthritic change. Soft tissues: Moderate soft tissue swelling noted most prominent the plantar calcaneal region IMPRESSION: Moderate plantar soft tissue swelling likely edema or cellulitis Posterior calcaneus has a flattened geometric appearance- suspect prior surgical resection. Calcification of the Achilles tendon insertion site on the calcaneus likely stigmata of old trauma or inflammation Dictated by: Yossi Mckenna M.D. on 05/13/2025 at 10:21 Approved by: Yossi Mckenna M.D. on 05/13/2025 at 10:23
[2025-05-12 16:51] LABS: TSH w/ Reflex to FT4 0.10 uIU/mL (0.47-4.68)
[2025-05-12 17:59] LABS: Free T4, Direct Thyroxine 1.49 ng/dL (0.78-2.19)
== END ==
PROVIDERS: Family Medicine; PCP Student in an Organized Health Care Education/Training Program; Referring Provider Student in an Organized Health Care Education/Training Program; Visit Provider Student in an Organized Health Care Education/Training Program
DX: E03.9 Hypothyroidism, unspecified (principal); M79.672 Pain in left foot
CPT/HCPCS: 36415; 73650; 84439; 84443

== ENCOUNTER → 2025-07-18 12:25 | Outpatient (CLI) | payer BC, SELFPAY ==
--- NOTE | 2025-07-18 12:27 | DI.RAD.S_ITS ---
PROCEDURE: XR WRIST RT MIN 3V INDICATIONS: R wrist pain TECHNIQUE: 4 views of the wrist were acquired. COMPARISON: [facility], CR, XR WRIST LT MIN 3V, 06/03/2024, 14:02. [facility], CR, XR WRIST RT MIN 3V, 02/15/2024, 11:40. FINDINGS: Bones: No fractures or dislocations. 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 No suspicious bony lesions. Soft tissues: No suspicious soft tissue calcifications. IMPRESSION: No acute bony abnormality. Dictated by: David Echavarria M.D. on 07/18/2025 at 14:49 Approved by: David Echavarria M.D. on 07/18/2025 at 14:50
== END ==
PROVIDERS: Family Provider Student in an Organized Health Care Education/Training Program; PCP Student in an Organized Health Care Education/Training Program; Referring Provider Student in an Organized Health Care Education/Training Program; Visit Provider Family Medicine
DX: M25.531 Pain in right wrist (principal); M19.031 Primary osteoarthritis, right wrist
CPT/HCPCS: 73110

== ENCOUNTER 2025-07-18 13:45 | Outpatient (RCR) | payer BC, SELFPAY ==
--- NOTE | 2025-05-23 12:53 | PT.OPPOC ---
Physical, Occupational & Speech Therapy At [facility] Current Diagnoses Pain in left foot (05/23/25) Visit Care Team Role Provider Type Venessa Wyatt MD Family Provider Physician Primary Care Provider Specialty: Family Practice Obstetrics Address: [facility] [place], [address] Email: [email or web address] Vonnie Duran PA-C Attending Provider Physician Referring Provider Specialty: Orthopedic Surgery Address: [address] [place] [address], [address] Fax: Email: [email or web address] Plan Of Care PT OP: Lower Back/Lower Extremity Start: 05/23/25 11:36 Freq: Status: Active Protocol: Document 05/23/25 11:36 BL (Rec: 05/23/25 12:53 BL Laptop) Out-Patient Physical Therapy Visit Information Visit Information Visit Type Initial Evaluation Visit Start Time 11:30 Visit Stop Time 12:10 Visit Number 1 (10/11) Number of SALES AGENT FINANCIAL REPORT SERVICE Visits 0 Progress Note Due 06/22/25 OP-PT Subjective Patient Comments Patient Comments Pt presents to the clinic this date with concerns for L medial ankle pain that started about 8 wks ago. Pt states she is very active with walking, hiking, cycling , and kayaking. Pt reports she has swelling to the back of her heel with activity and has been elevating to reduce this. She has also switched shoes to decrease the stress on her heels. Pt states she has a history of two Achilles tendon surgeries due to bone spurs. States she feels stiff in the morning but starts to notice the swelling after activity. Pt reports 8/10 pain with activity and describes this as a dull achy pain that can begin to feel more sharp. Does not report any numbness or coordination changes this date. States she has started taking meloxicam and this has helped. Denies using ice or other anti-inflammatory. Patient Reported Same Progress Patient Questionnaires Lower Extremity Functional Scale LEFS Score 38 function. Balance Tests Single Limb Standing Single Limb- Right 8 Single Limb- Left 4 Posture Evaluation Comments Posture Comments Pt demos normal alignment in sitting Standing: neutral yee WB and LE alignment, pt demos slight pronation to L foot. Decreased muscle tone noted on L LE through gastroc soleus complex. Gait: Pt ambulates with near normal gait pattern, demos slight increased pronation on L. Good heel strike-toe off, normal ER, appropriate WB yee Palpation Assessment Location L ankle Palpation Details Tenderness noted through L posterior medial achillies area over retrocalcaneal bursa area. Hip Goniometric Range of Motion Hip Measured in Degrees right Hip ROM WFL Yes left Hip ROM WFL Yes Knee Goniometric Range of Motion Knee Measured in Degrees Right Knee ROM WFL Yes Left Knee ROM WFL Yes Ankle and Foot Goniometric Range of Motion Ankle and Foot Measured in Degrees right Ankle/Foot ROM WFL Yes left Testing Position Sitting Dorsiflexion with 5 Knee Flexed Plantarflexion 60 Inversion 20 Eversion 30 Hip Strength Hip Manual Muscle Testing Right Flexion (L2) 4+ Good+ Abduction 4 Good External Rotation 4 Good Internal Rotation 4 Good Left Flexion (L2) 4+ Good+ Abduction 4 Good External Rotation 4 Good Internal Rotation 4 Good Knee Strength Knee Manual Muscle Testing Right Flexion (S2) 4+ Good+ Extension (L3) 5 Normal Left Flexion (S2) 4+ Good+ Extension (L3) 5 Normal Ankle/Foot Strength Ankle and Foot Manual Muscle Testing Right Dorsiflexion (L4) 5 Normal Plantarflexion (S1) 5 Normal Left Dorsiflexion (L4) 4+ Good+ Plantarflexion (S1) 4- Good- Therapeutic Exercises Standing Exercises stretch Standing Exercise Gastroc, Soleus Name Comments 3x 30 sec Physical Therapy Assessment Rehab Potential Rehabilitation Good Potential Evaluation Complexity Number of Personal 1-2 Factors/ Comorbidities Number of Body 3 Systems Impaired Clinical Evolving Presentation at Evaluation Impairments Impairments Activity Tolerance,Edema,Functional Activities, Functional Mobility,Gait,Pain,Posture,ROM,Soft Tissue Mobility,Strength Goals Three Alf Goal (LTG) Pt will demo improved LEFS score to 50 function or better by DC for improved quality of life. Two Alf Goal (LTG) Pt will be able to complete left single leg heel lift x 15 by DC for improved plantarflexion strength to improve stability with activity. One Short Term Goal (STG pt will be ind with HEP within 2 visits in order to ) progress toward skilled nursing therapy goals outside of therapy visits. Alf Goal (LTG) Pt will report being able to hike two miles without increase in symptoms by DC for improved quality of life . Assessment Summary Assessment Pt presents to the clinic this date with concerns for L heel pain. Pt demos decreased A/PROM and strength to L plantar flexor group as well as yee hip stabilizers. Pt also demos slight decreased L foot stability. The above deficits are limiting this pts ability to complete ADLS and recreational hobbies. Pt will benefit from skilled physical therapy intervention for strength and endurance training along with posture and activity modification to decrease inflammation and allow for return to PLOF. Physical Therapy Plan Frequency and Duration Frequency of 2x/Week Treatment Duration of 12 treatment (weeks) Plan of Care Start 05/23/25 Date Plan of Care End 08/15/25 Date Therapeutic Interventions Therapeutic Balance Training,Gait Training,Home Exercise Program, Interventions Joint Mobilizations,Manual Therapy,Neuromuscular Re- education,Orthotic/Prosthetic Management,Patient/ Caregiver Education,Self-Care/Home Management,Sensory Integration,Soft Tissue Mobilization,Taping,Therapeutic Activities,Therapeutic Exercises Modalities Cold Pack/Ice Massage,Electric Stimulation,Hot Packs, Infrared Therapy,Iontophoresis,Ultrasound Next Visit Focus/Plan Next Note Type Treatment Note Next Visit Plan Advance HEP for arch strength, ankle stability and mobility, hip abduction strength. Plan of Care Dates Plan of Care Start Date 05/23/25 Plan of Care End Date 08/15/25 Electronically Signed by: Kirk Humphrey, PT 05/23/25 0964 If you are in agreement with this Plan of Care, please return a signed and dated copy. I have reviewed this Plan of Care and certify that the skilled therapy services above are required to meet the patient?s needs. Physician Signature Date Printed Name and Credentials Clinical Instructor Signature Printed Name and Credentials
--- NOTE | 2025-05-29 18:06 | PT.OTN ---
Current Diagnoses Pain in left foot (05/29/25) Physical Therapy Treatment Note PT OP: Lower Back/Lower Extremity Start: 05/23/25 11:36 Freq: Status: Active Protocol: Document 05/29/25 17:03 BL (Rec: 05/29/25 18:06 BL Laptop) Out-Patient Physical Therapy Visit Information Visit Information Visit Type Treatment Note Visit Start Time 17:00 Visit Stop Time 17:40 Visit Number 1 (10/11) Number of EXECUTIVE LEGAL SECRETARY Visits 0 Progress Note Due 06/22/25 Precautions Precautions pt bruises easier OP-PT Subjective Patient Comments Patient Comments Pt presents to the clinic this date and reports she is doing well, started biking this week and has not had an increase in her symptoms. Pt states she continues to have swelling through her L ankle but reports it is no worse Therapeutic Exercises Standing Exercises strength Standing Exercise stair HR, arch lift with tapping. Name stretch Standing Exercise Gastroc, Soleus Name Comments 3x 30 sec Manual Therapy Treatment Consent Patient gave verbal Yes consent for manual treatment Soft Tissue Mobilization L calf Comments DTM and TPR to L soleus and peroneal. large trigger points noted this date with improved tissue mobility and symptoms following. Physical Therapy Assessment Goals Three Fire Hose Curer Goal (LTG) Pt will demo improved LEFS score to 50 function or better by DC for improved quality of life. Two Correction Goal (LTG) Pt will be able to complete left single leg heel lift x 15 by DC for improved plantarflexion strength to improve stability with activity. One Short Term Goal (STG pt will be ind with HEP within 2 visits in order to ) progress toward retirement therapy goals outside of therapy visits. Fire Hose Curer Goal (LTG) Pt will report being able to hike two miles without increase in symptoms by DC for improved quality of life . Assessment Summary Assessment Pt tolerates session well, able to advance HEP for strength and endurance training. Pt educated and trial fitted superfeet arch support. Continue to advance strength training per pt tolerance. Pt demos medial soleus tightness this date with improved symptoms following. Physical Therapy Plan Frequency and Duration Frequency of 2x/Week Treatment Duration of 12 treatment (weeks) Plan of Care Start 05/23/25 Date Plan of Care End 08/15/25 Date Next Visit Focus/Plan Next Note Type Treatment Note Next Visit Plan Advance HEP for arch strength, ankle stability and mobility, hip abduction strength.
--- NOTE | 2025-06-04 15:44 | PT.OTN ---
Current Diagnoses Pain in left foot (06/04/25) Physical Therapy Treatment Note PT OP: Lower Back/Lower Extremity Start: 05/23/25 11:36 Freq: Status: Active Protocol: Document 06/04/25 13:30 AB (Rec: 06/04/25 14:40 AB [id number]) Out-Patient Physical Therapy Visit Information Visit Information Visit Type Treatment Note Visit Note Visit [email or web address] Access Code: [email or web address] Visit Start Time 13:49 Visit Stop Time 14:34 Visit Number 3/(12/09 Number of SMOKEHOUSE OPERATOR Visits 1 Progress Note Due 06/22/25 Precautions Precautions pt bruises easier OP-PT Subjective Patient Comments Patient Comments Patient reports she had a set back doing yard work, and is back to taking Meloxicam. Patient reports she is icing, had increased swelling. Patient ambulates without device, with sign dec DF terminal stance, sit to stand with L LE extended. Therapeutic Exercises Sidelying Exercises sidelying hip abd Sidelying Exercise HEP Name Side right Reps/Minutes X 10 without band X 10 level 3 X 10 level 2 band Comments Level 2 band to HEP, Verbal cues Sitting Exercises dorsi flexion Side bilateral Reps/Minutes X 15 Comments verbal cues arch lift Sitting Exercise HEP Name Side bilateral Reps/Minutes 2 min Comments Verbal and tactile cues for great toe abd to inc arch lift Standing Exercises sit to stand Reps/Minutes X 4 Comments Verbal cues to inc knee flexion and for hip hinge, monitored for pain glute med isometric Standing Exercise HEP Name Reps/Minutes one min X 1 each LE Comments verbal cues Therapeutic Activity Therapeutic Activity gait training Reps/Minutes 1 Comments VC for heel toe pattern Manual Therapy Treatment Consent Patient gave verbal Yes consent for manual treatment Soft Tissue Mobilization L calf Body Location MLD to L LE, ant and post calf and ankle Mobilization Type Cross-Friction,Instrument Assisted,Other Intensity/Depth Superficial Body Position Hooklying Comments prone Physical Therapy Assessment Goals Three Commercial Parts Professional Goal (LTG) Pt will demo improved LEFS score to 50 function or better by DC for improved quality of life. Two Commercial Parts Professional Goal (LTG) Pt will be able to complete left single leg heel lift x 15 by DC for improved plantarflexion strength to improve stability with activity. One Short Term Goal (STG pt will be ind with HEP within 2 visits in order to ) progress toward alf therapy goals outside of therapy visits. Prison Goal (LTG) Pt will report being able to hike two miles without increase in symptoms by DC for improved quality of life . Assessment Summary Assessment Significant inc in SLS L LE from less than one sec to 3 -4 sec without UE use post glute med activation. Patient reports dec pain ambulating out of session with improved DF terminal stance less antalgic pattern without device, but not yet WNL Physical Therapy Plan Frequency and Duration Frequency of 2x/Week Treatment Duration of 12 treatment (weeks) Plan of Care Start 05/23/25 Date Plan of Care End 08/15/25 Date Next Visit Focus/Plan Next Note Type Treatment Note Next Visit Plan Advance HEP , ankle stability and mobility; Review HEP
--- NOTE | 2025-07-08 16:13 | PT.OPPOC ---
Physical, Occupational & Speech Therapy At [facility] Current Diagnoses Pain in left foot (07/08/25) Visit Care Team Role Provider Type Venessa Wyatt MD Family Provider Physician Primary Care Provider Specialty: Family Practice Obstetrics Address: [facility] [place], [address] Email: [email or web address] Vonnie Duran PA-C Attending Provider Physician Referring Provider Specialty: Orthopedic Surgery Address: [address] [place] [address], [id number] Fax: Email: [email or web address] Plan Of Care PT OP: Lower Back/Lower Extremity Start: 05/23/25 11:36 Freq: Status: Active Protocol: Document 07/08/25 15:19 [facility] (Rec: 07/08/25 15:33 [facility] [id number]) Out-Patient Physical Therapy Visit Information Visit Information Visit Type Progress Note Visit Start Time 15:15 Visit Stop Time 16:00 Visit Number 4 Number of HAND ENDBAND CUTTER Visits 0 OP-PT Subjective Patient Comments Patient Comments pt reports she went hiking yesterday and this was the first time she has done hills and it was the first day she tested it out. It didn't hurt during her hike but then it did hurt afterwards Therapeutic Exercises Supine Exercises ankle eversion with TB Reps/Minutes 2 x 10 level 2 ankle PF with inversion Reps/Minutes 2 x 10 with level 1 TB ankle DF with TB Reps/Minutes 2 x 10 reps level 2 TB Sidelying Exercises sidelying hip abd Sidelying Exercise HEP Name Side right Reps/Minutes X 10 without band X 10 level 3 X 10 level 2 band Comments Level 2 band to HEP, Verbal cues Standing Exercises bilateral calf raises Reps/Minutes 2 x 10 reps Comments left side weakness, unable to perform single leg calf raise stretch Standing Exercise Gastroc, Soleus Name Comments 3x 30 sec Manual Therapy Treatment Soft Tissue Mobilization L calf Body Location MLD to L LE, ant and post calf and ankle Mobilization Type Cross-Friction,Instrument Assisted,Other Intensity/Depth Superficial Body Position Hooklying Comments prone Physical Therapy Assessment Goals Three Siebel Crm Developer Goal (LTG) Pt will demo improved LEFS score to 50 function or better by DC for improved quality of life. 07/08/25 good progress Two Siebel Crm Developer Goal (LTG) Pt will be able to complete left single leg heel lift x 15 by DC for improved plantarflexion strength to improve stability with activity. 07/08/25 goal not yet met One Short Term Goal (STG pt will be ind with HEP within 2 visits in order to ) progress toward [facility] therapy goals outside of therapy visits. Siebel Crm Developer Goal (LTG) Pt will report being able to hike two miles without increase in symptoms by DC for improved quality of life . good progress and pt is back to hiking 2 miles but has residual tightness and soreness following Assessment Summary Assessment left calf weakness as compared to right, encouraged HEP and added in ankle DF, ankle PF with inversion to get the posterior tibialis, eversion with theraband. Iram is doing better overall and has been able to return to hiking however she is still weak and would benefit from continued PT for strengthening Physical Therapy Plan Frequency and Duration Frequency of 2x/Week Treatment Duration of 12 treatment (weeks) Plan of Care Start 07/08/25 Date Plan of Care End 09/30/25 Date Next Visit Focus/Plan Next Note Type Treatment Note Next Visit Plan MFR to left tibialis posterior, ankle stabilization exercises with Theraband, standing calf raises, balance exercises and gluteus medius strengthening Plan of Care Dates Plan of Care Start Date 07/08/25 Plan of Care End Date 09/30/25 Electronically Signed by: Meghan Ramirez, PT 07/08/25 0129 If you are in agreement with this Plan of Care, please return a signed and dated copy. I have reviewed this Plan of Care and certify that the skilled therapy services above are required to meet the patient?s needs. Physician Signature Date Printed Name and Credentials Clinical Instructor Signature Printed Name and Credentials
--- NOTE | 2025-07-10 10:39 | PT.OTN ---
Current Diagnoses Pain in left foot (07/10/25) Physical Therapy Treatment Note PT OP: Lower Back/Lower Extremity Start: 05/23/25 11:36 Freq: Status: Active Protocol: Document 07/10/25 09:53 AB (Rec: 07/10/25 10:39 AB [id number]) Out-Patient Physical Therapy Visit Information Visit Information Visit Type Treatment Note Visit Note Visit [email or web address] Access Code: [email or web address] Visit Start Time 09:53 Visit Stop Time 10:34 Visit Number 5 Number of VETERINARIAN EPIDEMIOLOGIST Visits 1 Progress Note Due 08/07/25 Precautions Precautions pt bruises easier OP-PT Subjective Patient Comments Patient Comments Patient reports she just ordered superfeet so she will have them for both shoes. Patient reports having no pain start of session. Patient reports hiking yesterday and with icing post has no pain after. SLS 29 sec L LE with femoral IR and contralateral pelvic drop noted Therapeutic Exercises Sitting Exercises dorsi flexion Side left Resistance level one band latex free Reps/Minutes X 15 Comments assist to set up band Standing Exercises DF AROM Reps/Minutes X 15 X2 Comments Verbal and visual cues bilateral calf raises Reps/Minutes 2 x 10 reps sit to stand Standing Exercise from 16 3/4 inch seat height HEP Name Equipment Used level 3 latex free band Reps/Minutes X 3 then with band X 10 X 3 Comments VC for knees flexed just past 90 deg glute med isometric Standing Exercise HEP Name Reps/Minutes one min X 1 each LE Comments verbal cues stretch Standing Exercise Gastroc, Soleus Name Comments 2x 60 sec VC to avoid toeing out Manual Therapy Treatment Consent Patient gave verbal Yes consent for manual treatment Soft Tissue Mobilization L calf Body Location MLD to L LE, ant and post calf and ankle Mobilization Type Cross-Friction,Instrument Assisted,Other Intensity/Depth Superficial Body Position Hooklying Comments prone Physical Therapy Assessment Goals Three Visiting Housekeeper Goal (LTG) Pt will demo improved LEFS score to 50 function or better by DC for improved quality of life. 07/08/25 good progress Two Alf Goal (LTG) Pt will be able to complete left single leg heel lift x 15 by DC for improved plantarflexion strength to improve stability with activity. 07/08/25 goal not yet met One Short Term Goal (STG pt will be ind with HEP within 2 visits in order to ) progress toward [facility] therapy goals outside of therapy visits. Alf Goal (LTG) Pt will report being able to hike two miles without increase in symptoms by DC for improved quality of life . good progress and pt is back to hiking 2 miles but has residual tightness and soreness following Assessment Summary Assessment Patient able to perform sit to stand with band with good hip hinge, good form. Patient rates pain 0/10 end of session. Physical Therapy Plan Frequency and Duration Frequency of 2x/Week Treatment Duration of 12 treatment (weeks) Plan of Care Start 07/08/25 Date Plan of Care End 09/30/25 Date Next Visit Focus/Plan Next Note Type Treatment Note Next Visit Plan MFR to left tibialis posterior, ankle stabilization exercises with Theraband, standing calf raises, balance exercises and gluteus medius strengthening
--- NOTE | 2025-07-15 16:15 | PT.OTN ---
Current Diagnoses Pain in left foot (07/15/25) Physical Therapy Treatment Note PT OP: Lower Back/Lower Extremity Start: 05/23/25 11:36 Freq: Status: Active Protocol: Document 07/15/25 10:48 [facility] (Rec: 07/15/25 11:35 [facility] Laptop) Out-Patient Physical Therapy Visit Information Visit Information Visit Type Treatment Note Visit Start Time 10:48 Visit Stop Time 11:30 Visit Number 6 Number of AUTOBODY TECHNICIAN Visits 2 Progress Note Due 08/07/25 Precautions Precautions pt bruises easier OP-PT Subjective Patient Comments Patient Comments Iram reports she got the new inserts yesterday, which are green Super feet and she hasn't tried them yet. She hasn't been doing all of the exercises, but if they're more sitting and standing she'll be more likely to do them. Therapeutic Exercises Sitting Exercises Hip Abduction Sitting Exercise 1. Activation Hold 2. AROM Name Side bilateral Resistance Lvl 3 Reps/Minutes 1. 60 hold 2. x10 Comments w/ tall sit and breathwork - positive feedback response dorsi flexion Side left Resistance level one band latex free, looped around foot, R foot on knot Reps/Minutes X 15 Comments cues eccentric control Standing Exercises resisted sidestep Standing Exercise added to HEP Name Side bilateral Resistance Lvl 3 Tb above knees>ankles Equipment Used handrail Reps/Minutes 2 x 15 ft Comments cues for no scuffing, neutral foot DF AROM Reps/Minutes X 15 X2 Comments Verbal and visual cues bilateral calf raises Equipment Used scale under LLE and 2 under R for eccentrics Reps/Minutes 2 x 10 reps> L SL eccentric 2x15 Comments painfree LEs, LBP resolves w/ cues for TrA activation w / breath sit to stand Standing Exercise from 16 3/4 inch seat height HEP Name Equipment Used level 3 latex free band Reps/Minutes 2x10 Comments initial VC for eccentric control stretch Standing Exercise Gastroc, Soleus, lunge position Name Side bilateral Equipment Used handrail Comments 2x 60 sec ea VC for LE alignment, painfree Physical Therapy Assessment Assessment Summary Assessment Treatment focus on HEP review and hip strengthening. Pt requires consistent cues for eccentric control and demos improved self-awareness and form following. Added to HEP: seated Gluteus medius m. activation and resisted sidesteps Lvl 3 Tb at ankles - HO declined. Physical Therapy Plan Frequency and Duration Frequency of 2x/Week Treatment Duration of 12 treatment (weeks) Plan of Care Start 07/08/25 Date Plan of Care End 09/30/25 Date Next Visit Focus/Plan Next Note Type Treatment Note Next Visit Plan MFR to left tibialis posterior, ankle stabilization exercises with Theraband, standing calf raises, balance exercises and gluteus medius strengthening
--- NOTE | 2025-07-18 17:20 | PT.OTN ---
Current Diagnoses Pain in left foot (07/18/25) Physical Therapy Treatment Note PT OP: Lower Back/Lower Extremity Start: 05/23/25 11:36 Freq: Status: Active Protocol: Document 07/18/25 16:39 NBM (Rec: 07/18/25 17:20 NBM Laptop) Out-Patient Physical Therapy Visit Information Visit Information Visit Type Treatment Note Visit Start Time 13:53 Visit Stop Time 14:35 Visit Number 7 Number of CLASSIFICATION CONTROL CLERK Visits 3 Progress Note Due 08/07/25 Precautions Precautions pt bruises easier OP-PT Subjective Patient Comments Patient Comments Iram reports she hiked 5.8 miles yesterday with new inserts but they seemed too tall and her heel rubbed and is sore today. She stretched calves while out hiking. She has a lot of exercises and when it feels like too much she won't do any, and prefers ones she can do sitting or standing. Therapeutic Exercises Supine Exercises ankle eversion with TB Supine Exercise Name Verbal HEP review Reps/Minutes 3 x 10 level 2 Comments modified to sitting and added to Ex log ankle PF with inversion Supine Exercise Name Verbal HEP review Reps/Minutes 3 x 10 with level 1 TB Comments modified to sitting and added to Ex log Sitting Exercises Hip Abduction Sitting Exercise verbal HEP review: added to Ex log 1. Activation Hold 2 Name . AROM Side bilateral Resistance Lvl 3 Reps/Minutes 1. 60 hold 2. x10 Comments w/ tall sit and breathwork - positive feedback response dorsi flexion Sitting Exercise HEP verbal review, added to Ex log. Name Side left Resistance level one band latex free, looped around foot, R foot on knot Reps/Minutes 3 x10 Comments cues eccentric control Standing Exercises resisted sidestep Standing Exercise HEP review: 1. Sidesteps at rail 2. progressed to Name monster walks Side bilateral Resistance Lvl 3 Tb ankles Equipment Used handrail> open gym Reps/Minutes 2 x 15 ft ea Comments initial cues hip hinge, neutral foot bilateral calf raises Standing Exercise 1. B calf raise 2. LLE eccentric calf raise Name Reps/Minutes x10 ea Comments HEP review, added to Ex log sit to stand Standing Exercise from 18 then 16.5 inch seat height HEP review Name Equipment Used level 3 latex free band above knees Reps/Minutes x10 ea Comments initial VC for eccentric control; added to ex log glute med isometric Standing Exercise HEP review; progressed to lateral monster walks Name Reps/Minutes one min X 1 each LE Comments verbal cues stretch Standing Exercise Gastroc, Soleus, lunge position - HEP review, added to Name Ex log Side bilateral Equipment Used handrail Comments 2x 30-60 sec ea VC for gluteal activation w/ upright posture Self-Care/Home Management Treatment Education Patient Education Body Mechanics,Home Exercise Program,Pain Management Other Education -Pt reports green superfeet inserts too thick for shoes contributing to soreness from heel rubbing. She trials blue superfeet most versatile inserts and is educated re: lacing shoes up tighter for increased ankle stability and comfort - positive feedback response to ambulation with blue inserts after shoes tied tighter. -Brief discussion of pt's ADHD and barriers to HEP performance as well as tendency towards overactivity. Pt given copies again of handouts and is issued exercise log with sitting and standing HEP focus. Resisted Seated hip abduction hold 60sec, clamshell x10 , Chair taps x10, Ankle strengthening 3x10 (PF w/IV, DF , EV). Standing monster walk 2x10 steps, Calf raises x10, LLE Ecc calf raises x10. Calf stretch at wall 30- 60 ea (Gastroc/Soleus). Physical Therapy Assessment Goals Three Senior Care Goal (LTG) Pt will demo improved LEFS score to 50 function or better by DC for improved quality of life. 07/08/25 good progress Two Senior Care Goal (LTG) Pt will be able to complete left single leg heel lift x 15 by DC for improved plantarflexion strength to improve stability with activity. 07/08/25 goal not yet met 07/15/25: Progressing - L eccentric heel raise added to HEP One Short Term Goal (STG pt will be ind with HEP within 2 visits in order to ) progress toward senior living therapy goals outside of therapy visits. 07/18/25: Progressing - Pt given reissued handouts and is issued exercise log with sitting and standing HEP focus. Resisted Seated hip abduction hold 60sec, clamshell x10, Chair taps x10, Ankle strengthening 3x10 (PF w/IV, DF, EV). Standing monster walk 2x10 steps, Calf raises x10, LLE Ecc calf raises x10. Calf stretch at wall 30-60 ea (Gastroc/Soleus). Senior Care Goal (LTG) Pt will report being able to hike two miles without increase in symptoms by DC for improved quality of life . good progress and pt is back to hiking 2 miles but has residual tightness and soreness following 07/18/25: Progressing - Pt hiked 5.8 mi yesterday with new inserts and had soreness around both sides of Achilles t. at heel following. Assessment Summary Assessment Treatment focus on HEP review and issuing exercise log to direct pt's exercises towards sitting and standing ( for improved carryover) and limit overactivity, as they report since last session hiking 5.8 mi with new inserts and presenting today with L heel soreness, as well as trialing new resisted hip abduction exercises, and wanting to start biking and planks as well. Pt encouraged to limit new interventions to avoid overactivity at this time and is given copies again of handouts and is issued exercise log to improve HEP focus. Pt trials blue Superfeet vs green inserts with instruction to tighten laces for improved ankle stability and has positive feedback response. Pt reports no pain end of session. Physical Therapy Plan Frequency and Duration Frequency of 2x/Week Treatment Duration of 12 treatment (weeks) Plan of Care Start 07/08/25 Date Plan of Care End 09/30/25 Date Next Visit Focus/Plan Next Note Type Treatment Note Next Visit Plan MFR to left tibialis posterior, ankle stabilization exercises with Theraband, standing calf raises, balance exercises and gluteus medius strengthening
--- NOTE | 2025-07-29 08:22 | PT.OPDS ---
Current Diagnoses Pain in left foot (07/18/25) Visit Care Team Role Provider Type Venessa Wyatt MD Family Provider Physician Primary Care Provider Specialty: Family Practice Obstetrics Address: [address] [place], [address] Email: [email or web address] Vonnie Duran PA-C Attending Provider Physician Referring Provider Specialty: Orthopedic Surgery Address: [address] [place] [address], [address] Fax: Email: [email or web address] Visit Number Visit Number 7 Discharge Summary PT OP: Lower Back/Lower Extremity Start: 05/23/25 11:36 Freq: Status: Active Protocol: Document 07/29/25 08:21 [facility] (Rec: 07/29/25 08:22 [facility] [id number]) Physical Therapy Assessment Goals Three Acting Manager Goal (LTG) Pt will demo improved LEFS score to 50 function or better by DC for improved quality of life. 07/08/25 good progress Two Prison Goal (LTG) Pt will be able to complete left single leg heel lift x 15 by DC for improved plantarflexion strength to improve stability with activity. 07/08/25 goal not yet met 07/15/25: Progressing - L eccentric heel raise added to HEP One Short Term Goal (STG pt will be ind with HEP within 2 visits in order to ) progress toward skilled nursing therapy goals outside of therapy visits. 07/18/25: Progressing - Pt given reissued handouts and is issued exercise log with sitting and standing HEP focus. Resisted Seated hip abduction hold 60sec, clamshell x10, Chair taps x10, Ankle strengthening 3x10 (PF w/IV, DF, EV). Standing monster walk 2x10 steps, Calf raises x10, LLE Ecc calf raises x10. Calf stretch at wall 30-60 ea (Gastroc/Soleus). Prison Goal (LTG) Pt will report being able to hike two miles without increase in symptoms by DC for improved quality of life . good progress and pt is back to hiking 2 miles but has residual tightness and soreness following 07/18/25: Progressing - Pt hiked 5.8 mi yesterday with new inserts and had soreness around both sides of Achilles t. at heel following. Assessment Summary Assessment Iram requests DC at this time for her foot and ankle and se is seeing ortho for a new referral for her wrist at this time Physical Therapy Plan Discharge Physical Therapy Discharge Reasons Patient Request Discharge Comments DC to I HEP
== END 2025-07-29 10:20 | disposition home or self-care (01) ==
LOC: PHYS 13:45
PROVIDERS: Family Provider Student in an Organized Health Care Education/Training Program; PCP Student in an Organized Health Care Education/Training Program; Referring Provider Physician Assistant Surgical; Visit Provider Physician Assistant Surgical
DX: M79.672 Pain in left foot (principal)
CPT/HCPCS: 97110; 97140; 97162; 97535

== ENCOUNTER → 2025-07-26 08:14 | Outpatient (CLI) | payer BC, SELFPAY | PROVIDERS: Family Provider Student in an Organized Health Care Education/Training Program; PCP Student in an Organized Health Care Education/Training Program; Visit Provider Chiropractor | DX: R30.0 Dysuria (principal) | CPT/HCPCS: 87077; 87086; 87186 ==

== ENCOUNTER → 2025-09-02 07:48 | Outpatient (CLI) | payer MEDICARE, OTHER, SELFPAY | PROVIDERS: Family Provider Student in an Organized Health Care Education/Training Program; PCP Student in an Organized Health Care Education/Training Program; Visit Provider Chiropractor | DX: R30.0 Dysuria (principal) | CPT/HCPCS: 87077; 87086 ==

== ENCOUNTER → 2025-09-23 10:10 | Outpatient (CLI) | payer MEDICARE, OTHER, SELFPAY | PROVIDERS: Family Provider Student in an Organized Health Care Education/Training Program; PCP Student in an Organized Health Care Education/Training Program; Referring Provider Physician Assistant; Visit Provider Physician Assistant | DX: R30.0 Dysuria (principal) | CPT/HCPCS: 87086 ==